=== PATIENT | female | born 1930 | race Caucasian/White ===

== ENCOUNTER 2017-02-23 13:50 | Emergency (ER) | payer MEDICARE ==
[~2017-02-23] VITALS: Ht 154.9 cm; Wt 73.0 kg
[~2017-02-23 13:50] MED LIST: AMLODIPINE10 MG PO; CLOPIDOGREL75 MG PO; GLIPIZIDE10 MG PO; HYDROCHLOROTHIA25 M1 PO; LIPITOR20 MG PO; LISINOPRIL40 MG PO; LOPRESSOR50 MG PO; LOVASTATIN20 MG PO; METFOMIN HYDRO850 MG PO; ONGLYZA2.5 MG PO; SYNTHROID 0.0.075 MG PO
--- OUTSIDE RECORDS SUMMARY | 2017-02-23 13:56 | External Medical Summary Rpt ---
Author Author DEX [facility] Organization [facility] Address Unknown Phone Unavailable Care Team Providers Care Forestry Technician Name Role Phone RENETTA, G PCP [phone] Encounter DEX JEROME [id number] Date(s): 05/17/16 - 05/25/16 [facility] [address] [place] [address]- Discharge Disposition: OP Self Care or Home Attending Physician: FIFI SOSA MD Admitting Physician: FIFI SOSA MD Referring Physician: FIFI SOSA MD Reason for Visit AGE-RELATED NUCLEAR CATARACT, RIGHT EYE Vital Signs Most recent 1 2 3 4 to oldest [Reference Range]: Temperature Temporal Temporal Temporal Source artery artery artery scanning scanning scanning (05/25/16 (05/25/16 (05/25/16 8:48 AM) 8:14 AM) 6:11 AM) Temperature Fahrenheit Fahrenheit Fahrenheit Mode (05/25/16 (05/25/16 (05/25/16 8:48 AM) 8:14 AM) 6:11 AM) Temperature, 97.6 Deg F 97.9 Deg F 96.6 Deg F Fahrenheit (05/25/16 (05/25/16 *LOW*( [96.8-99.7 8:48 AM) 8:14 AM) 16 6:11 AM) Deg F] Clinical 36.6 Deg C 35.9 Deg C Temperature, (05/25/16 (05/25/16 C 8:14 AM) 6:11 AM) Pulse Method Non-Invasive BP Device (05/25/16 6:11 AM) Peripheral 62 bpm Pulse Rate (05/25/16 [60-100 bpm] 6:11 AM) Heart Rate 58 bpm 63 bpm Monitored *LOW*( (05/25/16 [60-100 bpm] 16 8:48 AM) 8:14 AM) Respiratory 16 18 20 Rate [14-20 Breaths/Min Breaths/Min Breaths/Min Breaths/Min] (05/25/16 (05/25/16 (05/25/16 8:48 AM) 8:14 AM) 6:11 AM) Blood Arm, left Pressure upper Location (05/25/16 6:11 AM) Blood Non-Invasive Pressure BP Device Source (05/25/16 6:11 AM) Blood Sitting Pressure (05/25/16 Position 6:11 AM) Blood 145/63 mmHg 143/62 mmHg 189/87 mmHg Pressure *HI*( *HI*( *HI*( [90-140/60-9 6 8:48 AM) 6 8:14 AM) 6 6:11 AM) 0 mmHg] Oxygen 98 % 96 % 100 % Saturation (05/25/16 (05/25/16 (05/25/16 [94-100 %] 8:48 AM) 8:14 AM) 6:11 AM) Oxygen Room air Room air Room air Room air Therapy Mode (05/25/16 (05/25/16 (05/25/16 (05/25/16 8:48 AM) 8:14 AM) 6:11 AM) 6:11 AM) Problem List Condition Effective Status Health Informant Dates Status Diabetes(Con Active firmed) Cataract(Con Active patient firmed) Allergies, Adverse Reactions, Alerts Substance Reaction Severity Status flu vaccine Active Lasix Active pentazocine Active Talwin Active Medications No Known Medications Results GENERAL CHEMISTRY Most recent 1 2 to oldest [Reference Range]: Sodium Level 134 mmol/L [136-145 *LOW* mmol/L] (05/25/16 6:34 AM) Potassium 4.0 mmol/L Level (05/25/16 6:34 AM) [3.5-5.1 mmol/L] Chloride 98 mmol/L Level (05/25/16 6:34 AM) [98-107 mmol/L] Carbon 24 mmol/L Dioxide (05/25/16 6:34 AM) Level [21-32 mmol/L] Anion Gap 16 [9-20] (05/25/16 6:34 AM) Glucose 295 mg/dL Level *HI* [74-106 (05/25/16 6:34 AM) mg/dL] Blood Urea 50 mg/dL Nitrogen *HI* [7-18 mg/dL] (05/25/16 6:34 AM) Creatinine 1.40 mg/dL Level *HI* [0.55-1.02 (05/25/16 6:34 AM) mg/dL] eGFR 43 mL/min/1.73m2 [>=60 *LOW* mL/min/1.73m (05/25/16 6:34 AM) 2] eGFR 36 mL/min/1.73m2 NonAfrican *LOW* [>=60 (05/25/16 6:34 AM) mL/min/1.73m 2] Bun/Creatini 35.7 ne *HI* [8.0-20.0] (05/25/16 6:34 AM) Calcium 9.4 mg/dL Level (05/25/16 6:34 AM) [8.5-10.1 mg/dL] Protein 7.5 Gram/dL Total (05/25/16 6:34 AM) [6.4-8.5 Gram/dL] Albumin 3.7 Gram/dL Level (05/25/16 6:34 AM) [3.4-5.0 Gram/dL] Globulin 3.8 Gram/dL [1.5-4.5 (05/25/16 6:34 AM) Gram/dL] A/G Ratio 1.0 [1.1-2.5] *LOW* (05/25/16 6:34 AM) Bilirubin 0.3 mg/dL Total (05/25/16 6:34 AM) [0.2-1.0 mg/dL] Alk Phos 34 Units/Liter [46-116 *LOW* Units/Liter] (05/25/16 6:34 AM) AST [15-37 14 Units/Liter Units/Liter] *LOW* (05/25/16 6:34 AM) ALT [12-78 21 Units/Liter Units/Liter] (05/25/16 6:34 AM) Glucose POC2 316 mg/dL 1 313 mg/dL [60-110 *HI* *HI* mg/dL] (05/25/16 8:17 AM) (05/25/16 6:06 AM) 1Result Comment: Nurse Notified of ResultHEMATOLOGY Most recent 1 2 to oldest [Reference Range]: WBC [4.2-9.1 5.5 K/uL K/uL] (05/25/16 6:34 AM) RBC 4.19 Million/uL [3.93-5.22 (05/25/16 6:34 AM) Million/uL] Hgb 11.9 Gram/dL [11.2-15.7 (05/25/16 6:34 AM) Gram/dL] Hct 34.3 % [34.1-44.9 (05/25/16 6:34 AM) %] MCV 81.9 fL [79.0-94.8 (05/25/16 6:34 AM) fL] MCH 28.4 pg [25.6-32.2 (05/25/16 6:34 AM) pg] MCHC 34.7 Gram/dL [32.2-36.5 (05/25/16 6:34 AM) Gram/dL] Platelet 228 K/uL Count (05/25/16 6:34 AM) [163-369 K/uL] MPV 9.5 fL [9.4-12.4 (05/25/16 6:34 AM) fL] RDW 12.8 % [11.6-14.4 (05/25/16 6:34 AM) %] Neut % 59.4 % [34.0-71.0 (05/25/16 6:34 AM) %] Neut # 3.28 K/uL [1.56-6.13 (05/25/16 6:34 AM) K/uL] Lymph % 28.0 % [19.0-53.0 (05/25/16 6:34 AM) %] Lymph # 1.55 K/uL [1.18-3.74 (05/25/16 6:34 AM) K/uL] Avery % 9.0 % [4.7-12.5 %] (05/25/16 6:34 AM) Avery # 0.50 K/uL [0.24-0.82 (05/25/16 6:34 AM) K/uL] Eos % 3.1 % [1.0-7.0 %] (10/19/16 6:34 AM) Eos # 0.17 K/uL [0.04-0.54 (05/25/16 6:34 AM) K/uL] Baso % 0.5 % [0.0-1.0 %] (05/25/16 6:34 AM) Baso # 0.03 K/uL [0.01-0.08 (05/25/16 6:34 AM) K/uL] Slide Review No (05/25/16 6:34 AM) Immunizations No data available for this section Procedures Procedure Date Related Body Site Diagnosis Phaco with IOL - Left x 3 Tonsillectomy Social History Social History Response Type Tobacco Last Used: quit approx. 30 years ago.. Smoking Status Former smoker Assessment and Plan No data available for this section Hospital Discharge Instructions No data available for this section
--- OUTSIDE RECORDS SUMMARY | 2017-02-23 13:56 | External Medical Summary Rpt ---
Author Author DEX [facility] Organization [facility] Address Unknown Phone Unavailable Care Team Providers Care Cloth Burler Name Role Phone RENETTA, G PCP [phone] Encounter DEX JEROME [id number] Date(s): 05/17/16 - 05/25/16 [facility] [address] [place] [address]- Discharge Disposition: OP Self Care or Home [...] 1.55 K/uL [1.18-3.74 (05/25/16 6:34 AM) K/uL] Ashe % 9.0 % [4.7-12.5 %] (05/25/16 6:34 AM) Ashe # 0.50 K/uL [0.24-0.82 (05/25/16 6:34 AM) [...]
--- OUTSIDE RECORDS SUMMARY | 2017-02-23 13:56 | External Medical Summary Rpt ---
Author Author DEX [facility] Organization [facility] Address Unknown Phone Unavailable Care Team Providers Care Manager Packaging Name Role Phone RENETTA, G PCP [phone] Encounter DEX JEROME [id number] Date(s): 03/31/16 - 04/06/16 [facility] [address] [place] [address]- [phone] Discharge Disposition: Intermediate Care Facility OP Attending Physician: FIFI SOSA MD Admitting Physician: FIFI SOSA MD Referring Physician: FIFI SOSA MD Reason for Visit AGE-RELATED NUCLEAR CATARACT, LEFT EYE Vital Signs Most recent 1 2 3 to oldest [Reference Range]: Temperature Temporal artery Temporal artery Source scanning (04/06/16 scanning (04/06/16 8:33 AM) 6:36 AM) Temperature Fahrenheit Fahrenheit Mode (04/06/16 8:33 AM) (04/06/16 6:36 AM) Temperature, 98.0 Deg F 97.4 Deg F Fahrenheit (04/06/16 8:33 AM) (04/06/16 6:36 AM) [96.8-99.7 Deg F] Clinical 36.3 Deg C Temperature, (04/06/16 6:36 AM) C Heart Rate, 59 bpm Apical *LOW* [60-100 bpm] (04/06/16 6:36 AM) Heart Rate 56 bpm 61 bpm Monitored *LOW* (04/06/16 8:33 AM) [60-100 bpm] (04/06/16 8:56 AM) Respiratory 18 Breaths/Min 16 Breaths/Min 16 Breaths/Min Rate [14-20 (04/06/16 8:56 AM) (04/06/16 8:33 AM) (04/06/16 6:36 AM) Breaths/Min] Blood Arm, left upper Arm, left upper Arm, left upper Pressure (04/06/16 8:56 AM) (04/06/16 8:33 AM) (04/06/16 6:36 AM) Location Blood 154/65 mmHg 179/68 mmHg 187/74 mmHg Pressure *HI* *HI* *HI* [90-140/60-9 (04/06/16 8:56 AM) (04/06/16 8:33 AM) (04/06/16 6:36 AM) 0 mmHg] Oxygen 98 % 99 % 100 % Saturation (04/06/16 8:56 AM) (04/06/16 8:33 AM) (04/06/16 6:36 AM) [94-100 %] Oxygen Room air Room air Room air Therapy Mode (04/06/16 8:56 AM) (04/06/16 8:33 AM) (04/06/16 7:26 AM) Problem List Condition Effective Status Health Informant Dates Status Diabetes(Con Active firmed) Allergies, Adverse Reactions, Alerts Substance Reaction Severity Status flu vaccine Active Lasix Active pentazocine Active Talwin Active Medications No Known Medications Results GENERAL CHEMISTRY Most recent 1 to oldest [Reference Range]: Glucose POC2 154 mg/dL [60-110 *HI* mg/dL] (04/06/16 6:25 AM) Immunizations No data available for this section Procedures No data available for this section Social History Social History Response Type Tobacco Last Used: quit approx. 30 years ago.. Smoking Status Former smoker Assessment and Plan No data available for this section Hospital Discharge Instructions No data available for this section
--- OUTSIDE RECORDS SUMMARY | 2017-02-23 13:56 | External Medical Summary Rpt ---
Author Author DEX [facility] Organization [facility] Address Unknown Phone Unavailable Care Team Providers Care Client Relations Associate Name Role Phone RENETTA, G PCP [phone] Encounter DEX JEROME [id number] Date(s): 03/31/16 - 04/06/16 [facility] [address] [place] [address]- Discharge Disposition: Intermediate Care Facility OP Attending [...]
--- OUTSIDE RECORDS SUMMARY | 2017-02-23 13:57 | External Medical Summary Rpt ---
Author Author KH[facility] Address Unknown Phone Purpose Continuity of Care Document - through 2016
--- OUTSIDE RECORDS SUMMARY | 2017-02-23 13:57 | External Medical Summary Rpt ---
Author Author [facility] Organization [facility] Address Unknown Phone Unavailable Purpose Continuity of Care Document - through 2016
--- OUTSIDE RECORDS SUMMARY | 2017-02-23 13:57 | External Medical Summary Rpt ---
Author Author , KHADIJAH LUCIO Address Unknown Phone [email or web address] Immunization Name Date Rout CVX Reac Dose Comm Prov Is Faci e tion ent ider Refu lity Give sed n Zost 09-2 121 999 Hist LEXC No LEXC er 4-20 oric DIAMOND DIAMOND 14 al Info rmat ion - Sour ce Unsp ecif ied PPV2 09-2 33 0.5 Hist LEXC No LEXC 3 4-20 mL oric DIAMOND DIAMOND 14 al Info rmat ion - Sour ce Unsp ecif ied
--- OUTSIDE RECORDS SUMMARY | 2017-02-23 13:57 | External Medical Summary Rpt ---
Author Author , KHADIJAH LUCIO Address Unknown Phone [email or web address] Immunization Name Date Rout CVX Reac Dose [...]
--- OUTSIDE RECORDS SUMMARY | 2017-02-23 13:57 | External Medical Summary Rpt ---
Author Author KHADIJAH Gonzalez, KHADIJAH Gonzalez Organization [employer] Address Unknown Phone Unavailable
[2017-02-23 14:27] LABS: URINE BILIRUBIN - DIPSTICK NEGATIVE (NEG)
[2017-02-23 14:28] LABS: URINE BLOOD NEGATIVE (NEG)
[2017-02-23] MEDS ORDERED: AMOXICOT500 MG PO (14:44)
[2017-02-23 14:45] VITALS: BP 154/66
--- NOTE | 2017-02-23 14:45 | Urgent Treatment Center Report ---
History of Present Issue Date/Time Seen by Provider 02/23/17 1410 Visit Reason Pt arrived:Walked Presenting Problem:PT C/O BURNING WITH URINATION AND INCREASE IN FREQUENCY X1 WK Location if Accident: Onset of symptoms date/time:/ or onset unknown for:MEDICAL HX UNKNOWN Have you (or family members/close friends) recently traveled outside the [place]? N If Yes, where/when: Have you had exposure to infectious disease within the past month? TB? Other? Specify: Here w/ daughter who is requesting urine sample and continued antibiotics for a UTI. Was here for FU w/ Dr. Olguin and "thought we would stop in here too". Dysuria, urinary frequency and "being foggy headed" started Monday. Immediately started pyridum. Found amoxicillin 500mg TID from 02/2016 at home and started it 2-3 days ago. Has had 6 doses "and immediately felt better". Hasn't needed pyridum since around 3rd dose of amoxicillin. Pt [place] but denies fever, aches, malaise, abdominal pain, N/V, back pain, vaginal discharge, change urine color or smell. Hx of DM. Pt resist daughter checking BS most of the time. Just ran out of onglyza but can pick it up tomorrow. Declines clinic monitoring BS. "We will do that at home". Source patient, family Exam Limitations no limitations ALLERGIES Coded Allergies: pentazocine (From PHILLY) (NA-HALLUCINATIONS 06/18/15) Home Medications Reported Medications Atorvastatin Calcium (Lipitor 20MG) 20 MG PO DAILY Amlodipine Besylate (Amlodipine) 10 MG PO DAILY Lisinopril (Lisinopril 40MG) 40 MG PO BID HYDROCHLOROTHIAZIDE (Hydrochlorothiazide) 12.5 MG PO DAILY Metoprolol Tartrate (Lopressor) 50 MG PO BID Levothyroxine Sodium (Synthroid 0.075MG) 0.075 MG PO DAILY SAXAGLIPTIN HCL (Onglyza) 2.5 MG PO DAILY #7 CLOPIDOGREL BISULFATE (Clopidogrel 75MG) 75 MG PO DAILY History Medical History General CAD? No Angina: No VA: No Hypertension? Yes Hyperlipidemia? Yes CHF? No DVT? No PE? No COPD? No Asthma? No Anemia? No GERD? No Gastric ulcers? No GI Bleed? No Hernia? No Thyroid Problems? Yes Hypothyroidism? Yes CVA? No Seizures? No Diabetes? Yes Insulin Dependent: No Insulin Pump: No Home FSBS? Yes Renal Insuffiency? No UTI? No Stones? No GB Disease: No Nephritic Syndrome? No Asplenia? No Hepatitis? No Sickle Cell Disease? No Arthritis? Yes Migraines? No Cataracts? Yes Glaucoma? No MRSA? No HIV? No TB? No Anxiety? No Depression? No Cancer? No More? No Immunization HX DT/Tetanus > 10 Years Ago Flu Refused Pneumonia Received In Past Surgical Hx Previous Surgery?Y LEFT KNEE CYST REMOVAL ORIF -LEFT FEMUR ORIF -RIGHT FEMUR TONSILECTOMY CYST REMOVED FROM HEAD ALEJA CATARACTS CARDIAC STENTS X3 2015 Family History Family HX Diabetes Yes CAD Yes Hypertension Yes Hyperlipidemia Yes Cancer Yes TB No Social History Smoking Hx Smoker: Never Smoker Tobacco: No Alcohol Alcohol: No Review of Systems All Other Systems Reviewed and Negative Constitutional see HPI Gastrointestinal see HPI Genitourinary see HPI. denies: discharge, hematuria. Musculoskeletal see HPI Psychiatric/Neurological weakness (chronic, unchanged) Physical Exam Vital Signs Vital Signs Date Time Temp Pulse Resp B/P Pulse O2 O2 Flow FiO2 Ox Delivery Rate 02/23 1403 97.0 58 18 154/66 97 General Appearance normal appearance, no apparent distress Respiratory Status No: respiratory distress. Cardiovascular no peripheral edema Gastrointestinal normal bowel sounds, non tender, soft, no bladder distention, no suprapubic tenderness Back no CVA tenderness Neurologic alert, oriented x 3 Mental status normal mood/affect Skin normal color, warm/dry Medical Decision Making LABS/Meds/Orders Pt receiving controlled substance in ED? No Results/Orders Laboratory Tests 02/23/17 1359: Urine Color YELLOW, Urine Appearance Clear, Urine pH 5.0, Ur Specific Rentz <= 1.005, Urine Protein 100, Urine Ketones NEGATIVE, Urine Blood NEGATIVE, Urine Nitrate POSITIVE H, Urine Bilirubin NEGATIVE, Urine Urobilinogen 0.2, Ur Leukocyte Esterase NEGATIVE, Urine Glucose 100 Orders Procedure Date/time Status [facility] URINE DIPSTICK 02/23 1359 Complete Departure Departure Time of Disposition 1438 Disposition DC Home or Self Care(routine) Clinical Impression Primary Impression: Dysuria Secondary Impressions: Glucosuria Condition STABLE Referrals NO REFERRAL [facility] Primary Care provider: Be SURE to follow up anytime for new or worsening symptoms, if no improvement in 48 hours AND in 10-14 days to repeat UA and ensure infection resolved and blood no longer present. Patient Instructions DI for Urinary Tract Infection (UTI) Additional Instructions * increase fluids, Water and NOT soda or tea * COntinue antibiotic. Discard old ones. Start new prescription since it has been helping. Be sure to take as ordered for the FULL length of time although you should start to see improvement over the next 48 hours. * You should NEVER start taking antibiotics unless you have seen a provider and been directed to do so. You should always complete your antibiotics unless told to stop taking them. Left over antibiotics may not be appropriate for your current symptoms and starting antibiotics makes additonal testing sometimes inaccurate or not helpful, like cultures. * You should no longer need pyridium and if you feel like you need it again, that is reason to follow up. The symptoms should not return now that they have been improving. * Be SURE to follow up anytime for new or worsening symptoms, if no improvement in 48 hours AND in 10-14 days to repeat UA and ensure infection resolved and blood no longer present. * Be sure to let your PCP (or whoever you follow up with) know we did not send a urine culture because you have already been on antibiotics for 3 days. * Monitor BS closely. I understand you will check BS at home. You have glucose in your urine suggesting elevated readings. air support operations operator onglyza tomorrow. If remains elevated or you begin to have new or worsening symptoms, seek treatment immediately. * Daughter was notified of possible patient assistance programs and discounts for medications. She plans to look into such programs for onglyza. Discharge Counseling Counseled pt/family regarding diagnosis, test results, medications/RX, home care, follow up needs Prescriptions Current Visit Scripts Amoxicillin (Amoxicillin 500MG) 500 MG PO TID #21 CAP at 0068
== END 2017-02-23 14:46 | disposition home or self-care (01) ==
LOC: UTC 13:50
PROVIDERS: Nurse Practitioner Family
DX: R30.0 Dysuria (principal); R81 Glycosuria; E11.9 Type 2 diabetes mellitus without complications